=== PATIENT | female | born 1985 | race Caucasian/White ===

== ENCOUNTER → 2018-03-27 | Outpatient (CLI) | payer OTHER | LOC: M.ULTRA 03-26 07:30 | DX: R10.13 Epigastric pain (principal); Z90.49 Acquired absence of other specified parts of digestive tract ==

== ENCOUNTER → 2018-04-21 | Outpatient (CLI) | payer OTHER | LOC: M.RAD 13:25 | DX: R05 Cough (principal); Z90.49 Acquired absence of other specified parts of digestive tract ==

== ENCOUNTER 2018-06-16 20:19 | Emergency (ER) | payer OTHER ==
[~2018-06-16] VITALS: Ht 167.6 cm; Wt 84.8 kg
[2018-06-16 21:38] LABS: ABSOLUTE LYMPHOCYTES 1.8 thou/uL (0.8-5.3); ABSOLUTE MONOCYTES 0.6 thou/uL (0.0-1.2); BASOPHILS 0.3 %; EOSINOPHILS 0.6 %; HEMATOCRIT 38.5 % (37.0-47.0); LYMPHOCYTES 40.1 %; MCHC 33.9 g/dL (28.0-37.0); MCV 85.5 fL (80.0-100.0); MONOCYTES 14.4 %; MPV 7.6 fl. (7.2-11.1); NUCLEATED RBCS 0 /100WBC; PLATELET COUNT* 176 thou/uL (150-400); POLYS 44.6 %; WBC 4.5 thou/uL (4.0-11.0)
[2018-06-16 21:52] LABS: ALBUMIN 3.7 g/dL (3.4-5.0); CALCIUM 8.9 mg/dL (8.5-10.1); CREATININE 0.7 mg/dL (0.6-1.3); POTASSIUM 3.8 mmol/L (3.5-5.1); TOTAL BILIRUBIN 0.2 mg/dL (<0.1-1.0); TOTAL PROTEIN 7.4 g/dL (6.4-8.2)
[2018-06-17 01:35] VITALS: BP 135/94
== END 2018-06-17 01:37 | disposition home or self-care (01) ==
LOC: M.ERS 20:19
PROVIDERS: Emergency Medicine
DX: M94.0 Chondrocostal junction syndrome [Tietze] (principal); F32.9 Major depressive disorder, single episode, unspecified; F41.9 Anxiety disorder, unspecified; Z90.49 Acquired absence of other specified parts of digestive tract; Z98.890 Other specified postprocedural states

== ENCOUNTER 2018-06-17 20:34 | Emergency (ER) | payer OTHER ==
[~2018-06-17] VITALS: Ht 167.6 cm; Wt 84.8 kg
[2018-06-17 21:15] LABS: ABSOLUTE LYMPHOCYTES 1.3 thou/uL (0.8-5.3); ABSOLUTE MONOCYTES 0.6 thou/uL (0.0-1.2); ABSOLUTE NEUTROPHILS 3.7 thou/uL (1.6-8.1); BASOPHILS 0.1 %; EOSINOPHILS 0.6 %; HEMATOCRIT 38.3 % (37.0-47.0); LYMPHOCYTES 23.5 %; MCH 28.9 pg (26.0-34.0); MCHC 34.1 g/dL (28.0-37.0); MCV 84.9 fL (80.0-100.0); MONOCYTES 10.6 %; MPV 7.4 fl. (7.2-11.1); NUCLEATED RBCS 0 /100WBC; PLATELET COUNT* 165 thou/uL (150-400); POLYS 65.2 %; RBC 4.51 mil/uL (4.20-5.00); RDW-CV 13.1 % (10.5-14.5); WBC 5.7 thou/uL (4.0-11.0)
[2018-06-17 21:38] LABS: ANION GAP 8 mmol/L (7-16); BUN 18 mg/dL (7-18); CALCIUM 8.6 mg/dL (8.5-10.1); CHLORIDE 103 mmol/L (98-107); CO2 27 mmol/L (21-32); CREATININE 0.8 mg/dL (0.6-1.3); GLUCOSE 123 mg/dL (70-99); POTASSIUM 3.3 mmol/L (3.5-5.1); SODIUM 138 mmol/L (136-145); TROPONIN-I LEVEL <0.06 ng/mL (<0.06)
[2018-06-17 21:40] LABS: ALBUMIN 3.5 g/dL (3.4-5.0); ALKALINE PHOSPHATASE 102 U/L (46-116); LIPASE 132 U/L (73-393); NT-PRO BRAIN NAT PEPTIDE 24 pg/mL (<300); SGOT 123 U/L (15-37); SGPT 80 U/L (30-65); TOTAL BILIRUBIN 0.3 mg/dL (<0.1-1.0)
[2018-06-17 23:54] VITALS: BP 113/74
--- NOTE | 2018-06-18 09:37 | EKG ---
[place] [address] ELECTROCARDIOGRAM REPORT Name: MODESTASARINA E Room: [facility]#: [id number] Admission: 06/17/18 Attend Phys: Discharge: 06/17/18 Date of : 89 Report #: [id number] THIS REPORT FOR: //name// [facility] Test Date: 2018-06-17 Test Time: 20:39:07 Pat Name: SARINA BYERS Department: Room: Gender: F [employer]ist: [place] : 1985 Requested By: Robin Mcfarland Order Number: [id number] MD: Alexis Huang Measurements Intervals [place] Rate: 103 P: 36 IL: 143 QRS: 37 QRSD: 110 T: 60 QT: 342 QTc: 448 Interpretive Statements Sinus tachycardia Borderline T wave abnormalities No previous ECG available for comparison Electronically Signed On 06-18-2018 9:37:25 CDT by Alexis Huang [email or web address] <ELECTRONICALLY SIGNED> By: Alexis Huang MD, [facility] 06/18/18 0937 2039 38 Alexis Huang MD, FACC /EPI
== END 2018-06-17 23:54 | disposition home or self-care (01) ==
LOC: M.ERS 20:34
PROVIDERS: Emergency Medicine
DX: R10.10 Upper abdominal pain, unspecified (principal); F41.9 Anxiety disorder, unspecified; F32.9 Major depressive disorder, single episode, unspecified; Z90.49 Acquired absence of other specified parts of digestive tract

== ENCOUNTER → 2018-07-03 | Outpatient (CLI) | payer OTHER | LOC: M.MRI 06-19 13:30 | DX: S93.421A Sprain of deltoid ligament of right ankle, initial encounter (principal); X50.1XXA Overexertion from prolonged static or awkward postures, initial encounter; Y93.89 Activity, other specified; Y92.89 Other specified places as the place of occurrence of the external cause; Y99.8 Other external cause status ==

== ENCOUNTER 2018-10-01 15:26 | Emergency (ER) | payer OTHER ==
[~2018-10-01] VITALS: Ht 167.6 cm; Wt 84.8 kg
[2018-10-01] MEDS ORDERED: ONDANSETRON HCL4 M2 PO (17:54)
[2018-10-01] MEDS ORDERED: BUTALB-APAP-CA1 EACH PO (17:54)
[2018-10-01 18:05] VITALS: BP 149/95
== END 2018-10-01 18:06 | disposition home or self-care (01) ==
LOC: M.ERS 15:26
DX: S06.0X0A Concussion without loss of consciousness, initial encounter (principal); F41.9 Anxiety disorder, unspecified; F32.9 Major depressive disorder, single episode, unspecified; Z90.49 Acquired absence of other specified parts of digestive tract; W22.8XXA Striking against or struck by other objects, initial encounter; Y93.89 Activity, other specified; Y92.89 Other specified places as the place of occurrence of the external cause; Y99.8 Other external cause status

== ENCOUNTER 2018-11-24 17:56 | Emergency (ER) | payer OTHER ==
[~2018-11-24] VITALS: Ht 167.6 cm; Wt 84.8 kg
[~2018-11-24 17:56] MED LIST: BUTALB-APAP-CA1 EACH PO; ONDANSETRON HCL4 M2 PO
[2018-11-24 18:27] LABS: ABSOLUTE LYMPHOCYTES 2.9 thou/uL (0.8-5.3); ABSOLUTE MONOCYTES 0.6 thou/uL (0.0-1.2); ABSOLUTE NEUTROPHILS 3.4 thou/uL (1.6-8.1); BASOPHILS 0.2 %; EOSINOPHILS 0.1 %; HEMATOCRIT 41.1 % (37.0-47.0); LYMPHOCYTES 41.9 %; MCH 29.7 pg (26.0-34.0); MCHC 34.1 g/dL (28.0-37.0); MCV 86.9 fL (80.0-100.0); MONOCYTES 8.2 %; MPV 7.5 fl. (7.2-11.1); NUCLEATED RBCS 0 /100WBC; PLATELET COUNT* 215 thou/uL (150-400); POLYS 49.6 %; RBC 4.73 mil/uL (4.20-5.00); RDW-CV 13.4 % (10.5-14.5); WBC 6.9 thou/uL (4.0-11.0)
[2018-11-24 18:28] LABS: URINE BILIRUBIN NEGATIVE (Negative); URINE BLOOD NEGATIVE (Negative); URINE CLARITY CLEAR; URINE COLOR YELLOW; URINE GLUCOSE-RANDOM NEGATIVE (Negative); URINE KETONES NEGATIVE (Negative); URINE LEUKOCYTES-REFLEX NEGATIVE (Negative); URINE NITRITE-REFLEX NEGATIVE (Negative); URINE PROTEIN NEGATIVE (Negative); URINE SPECIFIC GRAVITY >= 1.030 (1.005-1.030); URINE UROBILINOGEN 0.2 E.U./dl (0.2-1.0)
[2018-11-24 18:36] LABS: CALCIUM 8.8 mg/dL (8.5-10.1); CREATININE 0.7 mg/dL (0.6-1.3); POTASSIUM 3.2 mmol/L (3.5-5.1)
[2018-11-24 18:41] LABS: ALBUMIN 4.4 g/dL (3.4-5.0); TOTAL BILIRUBIN 0.2 mg/dL (<0.1-1.0)
[2018-11-24 19:13] VITALS: BP 133/85
== END 2018-11-24 19:15 | disposition home or self-care (01) ==
LOC: M.ERS 17:56
PROVIDERS: Nurse Practitioner Family
DX: E87.6 Hypokalemia (principal); R10.11 Right upper quadrant pain; R03.0 Elevated blood-pressure reading, without diagnosis of hypertension; F41.9 Anxiety disorder, unspecified; F32.9 Major depressive disorder, single episode, unspecified; Z90.49 Acquired absence of other specified parts of digestive tract; Z98.890 Other specified postprocedural states

== ENCOUNTER → 2020-10-26 | Outpatient (CLI) | payer OTHER | LOC: M.ULTRA 07:58 | PROVIDERS: ATTEND Nurse Practitioner Family | DX: R16.0 Hepatomegaly, not elsewhere classified (principal); Z86.19 Personal history of other infectious and parasitic diseases ==